=== PATIENT | female | born 2005 | race African-American/Black ===

== ENCOUNTER 2023-02-10 02:31 | Emergency (ER) | payer MEDICAID ==
[2023-02-10] MEDS ORDERED: Ondansetron PF 4 MG/2 ML Vial ONE (02:53)
[2023-02-10] MEDS ORDERED: Sodium Chloride 0.9% 1,000 ML ONE (02:54)
[2023-02-10 03:05] LABS: #Basophils 0.1 thou/uL (0.0-0.2); #Eosinphils 0.5 thou/uL (0.0-0.7); #Lymphocytes 2.3 thou/uL (1.20-3.40); #Monocytes 0.6 thou/uL (0.11-0.59); #Neutrophils 3.6 thou/uL (1.40-6.50); %Basophils 1.3 % (0.0-1.0); %Eosinophils 6.7 % (0.0-10.0); %Lymphocytes 32.1 % (28.0-48.0); %Monocytes 9.1 % (0.0-4.0); %Neutrophils 50.8 % (31.0-61.0); Hemoglobin 13.8 g/dL (12.0-16.0); Mean Corpuscular HGB CONC 31.8 g/dL (32.0-36.0); Mean Corpuscular Hemoglobin 27.9 pg (25.0-35.0); Mean Corpuscular Volume 87.8 fl (78.0-98.0); Mean Platelet Volume 9.3 fL (7.4-10.4); Platelet Count 249 10x3/uL (130-400); RBC Distribution Width 11.6 % (11.5-14.5); Red Blood Cell (RBC) Count 4.93 mill/uL (4.00-5.20)
[2023-02-10 03:19] LABS: ALT (SGPT) 40 U/L (8-55); AST (SGOT) 38 U/L (5-30); Albumin 3.6 g/dL (3.5-5.0); Alkaline Phosphatase 70 U/L (40-100); Anion Gap 15 mmol/L (10-20); BUN (Urea Nitrogen) 17 mg/dL (8.4-21.0); Bilirubin, Total 0.4 mg/dL (0.2-1.2); Calc. Creatinine Clearance 0 mL/min (70-130); Calcium 8.8 mg/dL (7.8-10.44); Carbon Dioxide 21 mmol/L (22-29); Chloride 100 mmol/L (98-107); Estimated GFR 64; Globulin 3.7 g/dL (2.4-3.5); Potassium 4.1 mmol/L (3.5-5.1); Protein, Total 7.3 g/dL (6.0-8.3); Sodium 132 mmol/L (136-145)
[2023-02-10 03:26] LABS: Bilirubin Negative (Negative); Blood, Urine Negative (Negative); Clarity Clear (Clear); Glucose, Urine (Dipstick) 500 mg/dL (Negative); Ketone, Urine Trace mg/dL (Negative); Leukocyte Negative (Negative); Nitrite Negative (Negative); Protein, Urine (Dipstick) Negative (Neg-Trace); Urobilinogen 0.2 mg/dL (Less than 2)
[2023-02-10 03:27] LABS: Glucose 414 mg/dL (70-105)
[2023-02-10 03:29] LABS: Base Excess-Venous -0.8 mmol/L (-2.0 to 3.0); Bicarbonate (HCO3v) 22.9 mmol/L (22.0-28.0); CO2 Tension (PvCO2) 34.4 mmHg (42.0-51.0); Calcium, Ionized 1.05 mmol/L (1.15-1.33); Chloride 102 mmol/L (98-107); Hemoglobin - Calc 15.3 g/dL (12.0-16.0); Potassium 4.2 mmol/L (3.5-5.1); Sodium 136 mmol/L (138-145); vO2 Saturation-calc 94.4 % (60.0-85.0)
== END 2023-02-10 04:45 | disposition home or self-care (01) ==
LOC: NAV ERS 02:31
DX: E11.65 Type 2 diabetes mellitus with hyperglycemia (principal); Z79.84 Long term (current) use of oral hypoglycemic drugs
CPT/HCPCS: 36416; 80053; 81003; 82330; 82435; 82803; 84132; 84295; 85014; 85025; 96374; J2405; J7050